=== PATIENT | female | born 1965 | race Caucasian/White ===

== ENCOUNTER 2019-03-06 18:40 | Inpatient (IN) | payer OTHER ==
[~2019-03-06] VITALS: Ht 162.6 cm; Wt 76.1 kg
[2019-03-06] MEDS ORDERED: LISI-661 PO (18:51)
[2019-03-06] MEDS ORDERED: ATEN25TA PO (18:51)
[2019-03-06] MEDS ORDERED: METF-960 PO (18:51)
[2019-03-06 18:55] LABS: GLUCOSE,POINT OF CARE 152 MG/DL (70-110)
[2019-03-06] MEDS ORDERED: SODIUM CHLORIDE 0.9% 1,000 ML IV ONE (19:15)
[2019-03-06 19:41] LABS: MEAN CORPUSCULAR HEMOGLOBIN 43.7 pg (26.0-34.0); MEAN CORPUSCULAR HGB CONC 35.4 G/dL (31.0-37.0); MEAN CORPUSCULAR VOLUME 124 fL (80-100); PLATELET COUNT (AUTO) 75 K/uL (150-450); RED BLOOD CELL COUNT(AUTO) 1.59 MIL/uL (4.00-5.20)
[2019-03-06 19:45] LABS: HEMATOCRIT 19.7 % (36-46)
[2019-03-06 19:47] LABS: ANION GAP 7 mmol/L (8-16); CARBON DIOXIDE 28 mmol/L (22-29); CHLORIDE 103 mmol/L (98-107); CREATININE 0.81 mg/dL (0.60-1.30); GLOMERULAR FILTR. RATE CALC > 60 mL/min (>60); GLUCOSE,RANDOM 141 mg/dL (70-110); SODIUM SERUM 138 mmol/L (136-145); UREA NITROGEN, BLOOD 14 mg/dL (7-18)
[2019-03-06 19:52] LABS: ALANINE AMINOTRANSFERASE 40 U/L (12-78); ALBUMIN 3.7 g/dL (3.4-5.0); ALKALINE PHOSPHATASE 51 U/L (46-116); ASPARTATE AMINOTRANSFERASE 95 U/L (15-37); BAND NEUTROPHILS % (MANUAL) 1 % (0-5); BILIRUBIN,TOTAL 0.7 mg/dL (0.1-1.0); LYMPHOCYTES % (MANUAL) 48 % (22-44); MONOCYTES % (MANUAL) 7 % (2-9); REACTIVE LYMPHOCYTES 5 % (0-0); SEGMENTED NEUTROPHILS % 39 % (40-70); TOTAL PROTEIN, SERUM 7.6 g/dL (6.4-8.2)
[2019-03-06 19:53] LABS: PLATELET MORPHOLOGY COMMENT DECREASED
[2019-03-06] MEDS ORDERED: ACETAMINOPHEN 500 MG TABLET PO ONE (20:00)
[2019-03-06 20:26] LABS: APPEARANCE,URINE CLEAR (CLEAR); BILIRUBIN,URINE NEGATIVE (NEGATIVE); GLUCOSE, URINE (UA) NEGATIVE (NEGATIVE); KETONES,URINE NEGATIVE (NEGATIVE); LEUKOCYTE ESTERASE ,URINE SMALL (NEGATIVE); NITRATE,URINE NEGATIVE (NEGATIVE); OCCULT BLOOD,URINE TRACE (NEGATIVE); PROTEIN,URINE TRACE (NEGATIVE); UROBILINOGEN,URINE 0.2 mg/dL (<=1.0)
[2019-03-06] MEDS ORDERED: CefTRIAXone 1 GM/DEXTROSE 50 ML IV ONE (20:45)
[2019-03-06] MEDS ORDERED: ONDANSETRON HCL 4 MG/2 ML VIAL IVP PRN ×2 (21:00→21:30)
[2019-03-06] MEDS ORDERED: ACETAMINOPHEN 325 MG TABLET PO PRN ×2 (21:00→21:30)
[2019-03-06 21:05] LABS: BACTERIA,URINE Few /HPF (None Seen); SQUAMOUS EPITHELIAL CELL,UR Moderate /LPF (None Seen)
[2019-03-06] MEDS ORDERED: ZOLPIDEM TARTRATE 5 MG TABLET PO PRN (21:30)
[2019-03-06] MEDS ORDERED: 0.9% SODIUM CHLORIDE 10 ML SYRINGE IVP PRN (21:30)
[2019-03-06] MEDS ORDERED: DOCUSATE SODIUM 100 MG CAPSULE PO PRN (21:30)
[2019-03-06] MEDS ORDERED: DEXTROSE 50%-WATER 25 GM/50 ML SYRINGE IVP PRN (21:30)
[2019-03-06 21:49] LABS: RETICULOCYTE % (AUTO) 2.9 % (0.5-2.3)
[2019-03-06 22:00] LABS: C-REACTIVE PROTEIN QUANT 0.27 mg/dL (0.00-0.30)
[2019-03-06 22:02] VITALS: BP 140/85
[2019-03-06 22:02] LABS: % IRON SATURATION 51.3 % (22-44); IRON, SERUM 138 mcg/dL (50-175); TOTAL IRON BINDING CAPACITY 269 mcg/dL (250-450)
[2019-03-06] MEDS ORDERED: PNEUMOCOCCAL VACCINE POLYVALENT 0.5 ML VIAL [PPSV23] IM ONE (23:00)
[2019-03-06] MEDS ORDERED: INFLUENZA VIRUS VACCINE QVS 2019-20 (3YR+)/PF 60 MCG/0.5 ML SYRINGE IM ONE (23:00)
[2019-03-06 23:55] LABS: GLUCOMETER DEV NAME(LOC) 6N.2; GLUCOSE,POINT OF CARE 133 MG/DL (70-110)
[2019-03-06 23:57] VITALS: BP 124/70
[2019-03-07] VITALS (24 sets, daily range): BP systolic 117–158; BP diastolic 67–91
[2019-03-07 07:02] LABS: BASOPHILS % (AUTO) 0.1 % (0.0-2.0); EOSINOPHILS % (AUTO) 2.5 % (1.0-6.0); LYMPHOCYTES # (AUTO) 1.8 K/uL (1.0-4.8); LYMPHOCYTES % (AUTO) 59.8 % (22.0-44.0); MEAN CORPUSCULAR HEMOGLOBIN 42.4 pg (26.0-34.0); MEAN CORPUSCULAR HGB CONC 34.4 G/dL (31.0-37.0); MEAN CORPUSCULAR VOLUME 123 fL (80-100); MONOCYTES # (AUTO) 0.1 K/uL (0.1-1.0); MONOCYTES % (AUTO) 2.5 % (2.0-9.0); NEUTROPHILS # (AUTO) 1.1 K/uL (1.8-7.7); NEUTROPHILS % (AUTO) 35.1 % (40.0-70.0); RED BLOOD CELL COUNT(AUTO) 1.38 MIL/uL (4.00-5.20); RED CELL DISTRIBUTION WIDTH 24.5 % (11.5-14.5)
[2019-03-07 07:10] LABS: HEMOGLOBIN 5.9 g/dL (12.0-16.0)
[2019-03-07 07:18] LABS: ANION GAP 8 mmol/L (8-16); CALCIUM, TOTAL 8.3 mg/dL (8.8-10.5); CARBON DIOXIDE 26 mmol/L (22-29); CHLORIDE 108 mmol/L (98-107); CREATININE 0.64 mg/dL (0.60-1.30); GLOMERULAR FILTR. RATE CALC > 60 mL/min (>60); GLUCOSE,RANDOM 116 mg/dL (70-110); POTASSIUM 3.9 mmol/L (3.5-5.1); SODIUM SERUM 142 mmol/L (136-145); UREA NITROGEN, BLOOD 12 mg/dL (7-18)
[2019-03-07 07:50] LABS: PLATELET COUNT (AUTO) 64 K/uL (150-450)
[2019-03-07] MEDS: MetFORMIN HCL 500 MG TABLET PO SCH ×2 (08:00→17:30)
[2019-03-07] MEDS: PANTOPRAZOLE SODIUM 40 MG DR TABLET PO SCH (08:56)
[2019-03-07] MEDS: LISINOPRIL 10 MG TABLET PO SCH ×2 (08:57→09:00)
[2019-03-07] MEDS ORDERED: ATENOLOL 25 MG TABLET PO SCH (09:00)
[2019-03-07] MEDS ORDERED: SODIUM CHLORIDE 0.9% 500 ML IV ONE ×3 (10:37→21:18)
[2019-03-07] MEDS ORDERED: MAGNESIUM SULFATE 2 GM/WATER 50 ML IV PRN (11:15)
[2019-03-07] MEDS ORDERED: MAGNESIUM SULFATE 4 GM/WATER 100 ML IV PRN (11:15)
[2019-03-07] MEDS ORDERED: CYANOCOBALAMIN 1,000 MCG/ML VIAL SQ SCH (12:30)
[2019-03-07] MEDS: MAGNESIUM OXIDE 400 MG TABLET PO PRN ×2 (12:49→19:30)
[2019-03-07 19:17] LABS: FERRITIN 300 ng/mL (8-252)
[2019-03-07 19:41] LABS: FIBRIN SPLIT PRODUCTS GT >10 but LT <40 mcg/mL (<10)
[2019-03-07 20:30] LABS: LACTATE DEHYDROGENASE 4509 U/L (81-234)
[2019-03-07 20:36] LABS: GLUCOMETER DEV NAME(LOC) 6N.2; GLUCOSE,POINT OF CARE 119 MG/DL (70-110)
[2019-03-07 20:36] LABS: GLUCOMETER DEV NAME(LOC) 6N.2; GLUCOSE,POINT OF CARE 117 MG/DL (70-110)
[2019-03-07 20:36] LABS: GLUCOMETER DEV NAME(LOC) 6N.2; GLUCOSE,POINT OF CARE 111 MG/DL (70-110)
[2019-03-07 21:34] LABS: PROTHROMBIN TIME 10.5 SEC (9.4-11.6)
[2019-03-07] MEDS: CefTRIAXone 1 GM/DEXTROSE 50 ML IV SCH (21:42)
[2019-03-07 22:20] LABS: FIBRINOGEN 258 mg/dL (200-400)
[2019-03-07] MEDS ORDERED: DEXTROSE 5%-0.45% SODIUM CHL 1,000 ML IV ONE (22:30)
[2019-03-07] MEDS: INSULIN LISPRO 100 UNITS/ML SQ PRN (22:50)
[2019-03-08] VITALS (7 sets, daily range): BP systolic 125–153; BP diastolic 62–85
[2019-03-08] MEDS: MAGNESIUM OXIDE 400 MG TABLET PO PRN (01:19)
[2019-03-08 05:52] LABS: BASOPHILS % (AUTO) 0.2 % (0.0-2.0); EOSINOPHILS % (AUTO) 1.9 % (1.0-6.0); HEMATOCRIT 24.6 % (36-46); HEMOGLOBIN 8.7 g/dL (12.0-16.0); LYMPHOCYTES # (AUTO) 2.2 K/uL (1.0-4.8); MEAN CORPUSCULAR HEMOGLOBIN 38.1 pg (26.0-34.0); MEAN CORPUSCULAR HGB CONC 35.4 G/dL (31.0-37.0); MEAN CORPUSCULAR VOLUME 108 fL (80-100); MONOCYTES # (AUTO) 0.1 K/uL (0.1-1.0); MONOCYTES % (AUTO) 3.2 % (2.0-9.0); NEUTROPHILS # (AUTO) 1.3 K/uL (1.8-7.7); NEUTROPHILS % (AUTO) 35.7 % (40.0-70.0); PLATELET COUNT (AUTO) 59 K/uL (150-450); RED BLOOD CELL COUNT(AUTO) 2.28 MIL/uL (4.00-5.20); RED CELL DISTRIBUTION WIDTH 29.7 % (11.5-14.5)
[2019-03-08] MEDS: MetFORMIN HCL 500 MG TABLET PO SCH ×2 (08:00→17:30)
[2019-03-08 11:35] LABS: GLUCOMETER DEV NAME(LOC) 4E.2; GLUCOSE,POINT OF CARE 150 MG/DL (70-110)
[2019-03-08 11:36] LABS: GLUCOMETER DEV NAME(LOC) 4E.2; GLUCOSE,POINT OF CARE 144 MG/DL (70-110)
[2019-03-08 11:36] LABS: GLUCOMETER DEV NAME(LOC) 4E.2; GLUCOSE,POINT OF CARE 112 MG/DL (70-110)
[2019-03-08] MEDS: INSULIN LISPRO 100 UNITS/ML SQ PRN (12:01)
[2019-03-08] MEDS: LISINOPRIL 10 MG TABLET PO SCH (12:21)
[2019-03-08] MEDS: PANTOPRAZOLE SODIUM 40 MG DR TABLET PO SCH (12:21)
[2019-03-08] MEDS: CYANOCOBALAMIN 1,000 MCG/ML VIAL IM SCH (12:21)
[2019-03-08] MEDS ORDERED: SODIUM CHLORIDE 0.9% 1,000 ML IV ONE ×2 (13:57→14:15)
[2019-03-08 18:11] LABS: GLUCOMETER DEV NAME(LOC) 4E.2; GLUCOSE,POINT OF CARE 114 MG/DL (70-110)
[2019-03-08 18:11] LABS: GLUCOMETER DEV NAME(LOC) 4E.2; GLUCOSE,POINT OF CARE 136 MG/DL (70-110)
[2019-03-08] MEDS: CefTRIAXone 1 GM/DEXTROSE 50 ML IV SCH (20:29)
[2019-03-09 04:05] VITALS: BP 133/88
[2019-03-09 06:39] LABS: BASOPHILS % (AUTO) 0.2 % (0.0-2.0); EOSINOPHILS % (AUTO) 1.9 % (1.0-6.0); HEMATOCRIT 24.1 % (36-46); HEMOGLOBIN 8.6 g/dL (12.0-16.0); LYMPHOCYTES # (AUTO) 1.9 K/uL (1.0-4.8); LYMPHOCYTES % (AUTO) 49.8 % (22.0-44.0); MEAN CORPUSCULAR HEMOGLOBIN 38.5 pg (26.0-34.0); MEAN CORPUSCULAR HGB CONC 35.6 G/dL (31.0-37.0); MEAN CORPUSCULAR VOLUME 108 fL (80-100); MONOCYTES # (AUTO) 0.2 K/uL (0.1-1.0); MONOCYTES % (AUTO) 6.3 % (2.0-9.0); NEUTROPHILS # (AUTO) 1.6 K/uL (1.8-7.7); NEUTROPHILS % (AUTO) 41.8 % (40.0-70.0); PLATELET COUNT (AUTO) 57 K/uL (150-450); RED BLOOD CELL COUNT(AUTO) 2.23 MIL/uL (4.00-5.20); RED CELL DISTRIBUTION WIDTH 29.8 % (11.5-14.5)
[2019-03-09 07:56] LABS: GLUCOMETER DEV NAME(LOC) 4E.2; GLUCOSE,POINT OF CARE 192 MG/DL (70-110)
[2019-03-09 07:56] LABS: GLUCOMETER DEV NAME(LOC) 4E.2; GLUCOSE,POINT OF CARE 125 MG/DL (70-110)
[2019-03-09 08:03] VITALS: BP 122/66
[2019-03-09] MEDS: PANTOPRAZOLE SODIUM 40 MG DR TABLET PO SCH (08:32)
[2019-03-09] MEDS: MetFORMIN HCL 500 MG TABLET PO SCH (08:32)
[2019-03-09] MEDS: LISINOPRIL 10 MG TABLET PO SCH (08:32)
[2019-03-09] MEDS: CYANOCOBALAMIN 1,000 MCG/ML VIAL IM SCH (08:48)
[2019-03-09 11:41] VITALS: BP 134/76
[2019-03-09] MEDS: INSULIN LISPRO 100 UNITS/ML SQ PRN (12:28)
[2019-03-09 13:10] LABS: GLUCOMETER DEV NAME(LOC) 4E.2; GLUCOSE,POINT OF CARE 116 MG/DL (70-110)
[2019-03-09] MEDS ORDERED: LISI-661 PO (13:55)
== END 2019-03-09 14:55 | disposition home or self-care (01) | DRG 660 ==
LOC: EMS 18:40 → 4E 21:00
PROVIDERS: ADMIT Internal Medicine; ATTEND Internal Medicine
PROC: 30233N1 Transfusion of Nonautologous Red Blood Cells into Peripheral Vein, Percutaneous Approach (ICD-10-PCS; 2019-03-07)
PROC: 0DB58ZX Excision of Esophagus, Via Natural or Artificial Opening Endoscopic, Diagnostic (ICD-10-PCS; 2019-03-07)
PROC: 0DB68ZX Excision of Stomach, Via Natural or Artificial Opening Endoscopic, Diagnostic (ICD-10-PCS; principal; 2019-03-08 15:45)
DX: D61.818 Other pancytopenia (principal); D53.9 Nutritional anemia, unspecified; E11.9 Type 2 diabetes mellitus without complications; E53.8 Deficiency of other specified B group vitamins; F17.200 Nicotine dependence, unspecified, uncomplicated; N39.0 Urinary tract infection, site not specified; K22.70 Barrett's esophagus without dysplasia; I10 Essential (primary) hypertension; Z83.3 Family history of diabetes mellitus; Z82.49 Family history of ischemic heart disease and other diseases of the circulatory system; Z80.8 Family history of malignant neoplasm of other organs or systems; Z80.0 Family history of malignant neoplasm of digestive organs; Z28.21 Immunization not carried out because of patient refusal
CPT/HCPCS: 82271; 82607; 82728; 82746; 83010; 83540; 83550; 83615; 83735; 85045; 85362; 85379; 85384; 85651; 86140; 86340; 86850; 86900; 86901; 86920; 87086; 88305; 88312; 88313; 88342; 93005; 96365; 96372; G0378; J0696; J3420; J7030; J7040; P9016

== ENCOUNTER 2020-12-05 14:24 | Emergency (ER) | payer OTHER ==
[~2020-12-05] VITALS: Ht 162.6 cm; Wt 68.2 kg
[~2020-12-05 14:24] MED LIST: LISI-893 PO
[2020-12-05] MEDS ORDERED: AMOX1TAB15 PO (14:31)
[2020-12-05] MEDS ORDERED: METF-960 PO (14:31)
[2020-12-05] MEDS ORDERED: POVIDONE-IODINE 10% 15 ML SOLUTION UD TP ONE (15:00)
[2020-12-05] MEDS ORDERED: LIDOCAINE 1% 10 ML VIAL SQ ONE (15:00)
[2020-12-05] MEDS ORDERED: TraMADol HCL 50 MG TABLET PO ONE (15:00)
[2020-12-05 15:04] LABS: GLUCOMETER DEV NAME(LOC) ERT.5; GLUCOSE,POINT OF CARE 132 MG/DL (70-110)
[2020-12-05 16:19] VITALS: BP 131/78
== END 2020-12-05 16:25 | disposition home or self-care (01) ==
LOC: EMS 14:42
DX: N61.1 Abscess of the breast and nipple (principal); E11.9 Type 2 diabetes mellitus without complications; I10 Essential (primary) hypertension; F17.210 Nicotine dependence, cigarettes, uncomplicated
CPT/HCPCS: 10060; 82962; 99283; J3490

== ENCOUNTER 2020-12-07 08:18 | Emergency (ER) | payer OTHER ==
[~2020-12-07] VITALS: Ht 162.6 cm; Wt 68.2 kg
[~2020-12-07 08:18] MED LIST changes: +AMOX1TAB15 PO; +METF-960 PO
[2020-12-07] MEDS ORDERED: ATEN-73 PO (08:49)
[2020-12-07 08:56] VITALS: BP 152/73
== END 2020-12-07 10:25 | disposition home or self-care (01) ==
LOC: EMS 08:20
DX: N61.1 Abscess of the breast and nipple (principal); E11.9 Type 2 diabetes mellitus without complications; I10 Essential (primary) hypertension; F17.210 Nicotine dependence, cigarettes, uncomplicated; Z79.4 Long term (current) use of insulin; Z79.899 Other long term (current) drug therapy
CPT/HCPCS: 99281; Z7502